=== PATIENT | male | born 1970 | race Caucasian/White ===

== ENCOUNTER 2021-09-27 07:37 | Day surgery (SDC) | payer BC ==
[~2021-09-27] VITALS: Ht 188 cm; Wt 121.1 kg
[~2021-09-27 07:37] MED LIST: NO HOME MEDICATIONS
[2021-09-27] MEDS ORDERED: COZAAR100 MG PO (08:46)
[2021-09-27] MEDS ORDERED: NORVASC 5MG5 MG/TAB PO (08:47)
[2021-09-27] MEDS ORDERED: ASPIRIN 81M81 MG/TA2 PO (08:47)
[2021-09-27] MEDS ORDERED: LIPITOR 40MG TA40 MG PO (08:47)
[2021-09-27 08:48] VITALS: BP 130/96; PULSE 101; TEMP 97.7
[2021-09-27 09:25] VITALS: BP 105/72; PULSE 95; TEMP 97.4
--- NOTE | 2021-09-27 09:25 | NUR ---
The patient arrived from endo suite alert and oriented x3. The patient had no isseus ambulating from the cart to the chair, steady gait. Vitals obtained. Report obtained. The patient requested a muffin and Sprite to drink. Call melara is within reach on his bedside table. Will continue to monitor per intervals. The patient expressed desire to be discharged.
[2021-09-27 09:40] VITALS: BP 119/82; PULSE 89
--- NOTE | 2021-09-27 09:40 | NUR ---
Vitals obtained. The patient stated he would contact his ride. Call melara remains in reach. Denies nausea. No vomiting.
[2021-09-27 09:45] VITALS: BP 130/77; PULSE 77; TEMP 97.8
[2021-09-27 09:55] VITALS: BP 122/77; PULSE 85
--- NOTE | 2021-09-27 09:55 | NUR ---
Vitals obtained. IV discontined. Catheter tip intact. Pressure bandage applied. No swelling or redness noted. DC instructions and educational material was reviewed with the patient, who denied having any questions or concerns. The patient denied needing assistance changing into his personal clothes. The patient was then escorted out via wheelchair to the patient entrence by a student nurse, Kristine. The patient has his DC packet and personal belongings in hand and was transferred into the care of a friend.
[2021-09-27 11:31] VITALS: BP 105/72; PULSE 95
== END 2021-09-27 10:10 | disposition home or self-care (01) ==
LOC: SDCO 07:37
DX: Z12.11 Encounter for screening for malignant neoplasm of colon (principal); I10 Essential (primary) hypertension; E78.5 Hyperlipidemia, unspecified; Z79.899 Other long term (current) drug therapy
CPT/HCPCS: J2704; J7030